=== PATIENT | female | born 1950 | race Caucasian/White ===

== ENCOUNTER 2018-10-17 14:57 | Emergency (ER) | payer MEDICARE, OTHER ==
[~2018-10-17] VITALS: Ht 175.3 cm; Wt 68.2 kg
[~2018-10-17 14:57] MED LIST: AZIT250T PO
[2018-10-17 16:08] VITALS: BP 118/82
--- NOTE | 2018-10-17 18:06 | NUR ---
Boy monroe in [facility] - 10/17/18 at 1807 by PRO Pt states she slipped in the mud this afternoon at about 1200
--- NOTE | 2018-10-17 18:07 | NUR ---
Pt slipped in mud at 1300 and has a wrist/lower forearm deformity and CMS intact. She actually is minimally using that left hand to pull items out of her wallet.
[2018-10-17] MEDS ORDERED: LIDOcaine 1% 30ml preserv. free vial IJ ONE (18:10)
[2018-10-17] MEDS ORDERED: TETanus/Pertussis (Acell)/Diphther VAC/PF (Tdap-Adult) 0.5ml syringe IM ONE (18:10)
[2018-10-17] MEDS ORDERED: HYDROcodone/acetaminophen 10/325mg tab PO ONE (18:40)
[2018-10-17] MEDS ORDERED: HYDR-4353 PO (18:50)
== END 2018-10-17 19:04 | disposition home or self-care (01) ==
LOC: ER 14:57
DX: S52.592A Other fractures of lower end of left radius, initial encounter for closed fracture (principal); J45.909 Unspecified asthma, uncomplicated; Z88.0 Allergy status to penicillin; Z88.2 Allergy status to sulfonamides; Z88.5 Allergy status to narcotic agent; Z88.8 Allergy status to other drugs, medicaments and biological substances; Z79.899 Other long term (current) drug therapy; W01.0XXA Fall on same level from slipping, tripping and stumbling without subsequent striking against object, initial encounter; Y93.89 Activity, other specified; Y92.89 Other specified places as the place of occurrence of the external cause; Y99.8 Other external cause status
CPT/HCPCS: 20605; 73110; 90471; 90715; 99284; J3490

== ENCOUNTER 2018-10-27 14:58 | Outpatient (CLI) | payer MEDICARE, OTHER ==
[~2018-10-27] VITALS: Ht 177.8 cm; Wt 60.1 kg
[2018-10-27 14:55] VITALS: BP 114/65
== END 2018-10-27 15:46 | disposition home or self-care (01) ==
LOC: ORTHO 14:58
PROVIDERS: ATTEND Nurse Practitioner Family
DX: S52.592A Other fractures of lower end of left radius, initial encounter for closed fracture (principal); S52.692A Other fracture of lower end of left ulna, initial encounter for closed fracture; F17.210 Nicotine dependence, cigarettes, uncomplicated; J45.909 Unspecified asthma, uncomplicated; F32.9 Major depressive disorder, single episode, unspecified; Z88.0 Allergy status to penicillin; Z88.8 Allergy status to other drugs, medicaments and biological substances; Z88.5 Allergy status to narcotic agent; Z88.2 Allergy status to sulfonamides; Z88.1 Allergy status to other antibiotic agents; W01.0XXA Fall on same level from slipping, tripping and stumbling without subsequent striking against object, initial encounter; X58.XXXA Exposure to other specified factors, initial encounter; Y93.89 Activity, other specified; Y92.89 Other specified places as the place of occurrence of the external cause; Y99.8 Other external cause status
CPT/HCPCS: 73100; 99213

== ENCOUNTER 2018-11-04 14:34 | Outpatient (CLI) | payer MEDICARE, OTHER ==
[2018-11-04 14:32] VITALS: BP 107/65
== END 2018-11-04 15:14 | disposition home or self-care (01) ==
LOC: ORTHO 14:34
PROVIDERS: ATTEND Nurse Practitioner Family
DX: S52.592G Other fractures of lower end of left radius, subsequent encounter for closed fracture with delayed healing (principal); S52.692G Other fracture of lower end of left ulna, subsequent encounter for closed fracture with delayed healing; F17.210 Nicotine dependence, cigarettes, uncomplicated; Z88.8 Allergy status to other drugs, medicaments and biological substances; Z88.2 Allergy status to sulfonamides; W01.0XXD Fall on same level from slipping, tripping and stumbling without subsequent striking against object, subsequent encounter
CPT/HCPCS: 73110; 99213; A4590

== ENCOUNTER 2018-11-17 14:20 | Outpatient (CLI) | payer MEDICARE, OTHER ==
[2018-11-17 14:01] VITALS: BP 136/80
== END 2018-11-17 14:47 | disposition home or self-care (01) ==
LOC: ORTHO 14:20
PROVIDERS: ATTEND Nurse Practitioner Family
DX: S52.592G Other fractures of lower end of left radius, subsequent encounter for closed fracture with delayed healing (principal); S52.692G Other fracture of lower end of left ulna, subsequent encounter for closed fracture with delayed healing; M85.88 Other specified disorders of bone density and structure, other site; M25.522 Pain in left elbow; F17.210 Nicotine dependence, cigarettes, uncomplicated; J45.909 Unspecified asthma, uncomplicated; F32.9 Major depressive disorder, single episode, unspecified; Z88.0 Allergy status to penicillin; Z88.2 Allergy status to sulfonamides; Z88.1 Allergy status to other antibiotic agents; Z88.8 Allergy status to other drugs, medicaments and biological substances; W01.0XXD Fall on same level from slipping, tripping and stumbling without subsequent striking against object, subsequent encounter
CPT/HCPCS: 73080; 73110; 99213; A4590

== ENCOUNTER 2018-12-03 13:20 | Outpatient (CLI) | payer MEDICARE, OTHER ==
[2018-12-03 13:33] VITALS: BP 150/81
[2018-12-03 13:36] VITALS: BP 143/86
== END 2018-12-03 15:22 | disposition home or self-care (01) ==
LOC: ORTHO 13:20
PROVIDERS: ATTEND Orthopaedic Surgery
DX: S52.592G Other fractures of lower end of left radius, subsequent encounter for closed fracture with delayed healing (principal); S52.692G Other fracture of lower end of left ulna, subsequent encounter for closed fracture with delayed healing; M85.842 Other specified disorders of bone density and structure, left hand; F17.210 Nicotine dependence, cigarettes, uncomplicated; J45.909 Unspecified asthma, uncomplicated; F32.9 Major depressive disorder, single episode, unspecified; Z88.0 Allergy status to penicillin; Z88.1 Allergy status to other antibiotic agents; Z88.2 Allergy status to sulfonamides; Z88.8 Allergy status to other drugs, medicaments and biological substances; W01.0XXD Fall on same level from slipping, tripping and stumbling without subsequent striking against object, subsequent encounter
CPT/HCPCS: 73110; 99213

== ENCOUNTER 2018-12-31 12:10 | Outpatient (CLI) | payer MEDICARE, OTHER | END 2018-12-31 12:24 | disposition home or self-care (01) | LOC: ORTHO 12:10 | PROVIDERS: ATTEND Orthopaedic Surgery | DX: S52.532D Colles' fracture of left radius, subsequent encounter for closed fracture with routine healing (principal); M79.89 Other specified soft tissue disorders; W19.XXXD Unspecified fall, subsequent encounter | CPT/HCPCS: 73110; 99213 ==

== ENCOUNTER 2019-02-18 08:58 | Outpatient (CLI) | payer MEDICARE ==
[2019-02-18 09:03] VITALS: BP 145/80
== END 2019-02-18 09:45 | disposition home or self-care (01) ==
LOC: ORTHO 08:58
PROVIDERS: ATTEND Orthopaedic Surgery
DX: S52.592D Other fractures of lower end of left radius, subsequent encounter for closed fracture with routine healing (principal); J45.909 Unspecified asthma, uncomplicated; F17.210 Nicotine dependence, cigarettes, uncomplicated; W19.XXXD Unspecified fall, subsequent encounter
CPT/HCPCS: 73110; G0463